=== PATIENT | female | born 1990 | race African-American/Black ===

== ENCOUNTER 2020-04-18 14:35 | Emergency (ER) | payer OTHER ==
[2020-04-18 15:08] LABS: #Basophils 0.1 thou/uL (0.0-0.2); #Eosinphils 0.2 thou/uL (0.0-0.7); #Lymphocytes 2.2 thou/uL (1.20-3.40); #Monocytes 0.5 thou/uL (0.11-0.59); %Basophils 0.8 % (0.0-1.0); %Eosinophils 1.9 % (0.0-10.0); %Lymphocytes 28.1 % (21.0-51.0); %Monocytes 5.8 % (0.0-10.0); %Neutrophils 63.3 % (42.0-75.0); Hemoglobin 13.4 g/dL (12.0-16.0); Mean Corpuscular HGB CONC 32.6 g/dL (32.0-36.0); Mean Corpuscular Hemoglobin 28.3 pg (27.0-31.0); Mean Corpuscular Volume 86.8 fL (78.0-98.0); Mean Platelet Volume 8.4 fL (7.4-10.4); Platelet Count 279 thou/uL (130-400); RBC Distribution Width 11.7 % (11.5-14.5); Red Blood Cell (RBC) Count 4.74 mill/uL (4.20-5.40); White Blood Cell (WBC) Count 7.9 thou/uL (4.8-10.8)
[2020-04-18 15:11] LABS: Bilirubin Negative (Negative); Blood, Urine 3+ (Negative); Clarity Clear (Clear); Glucose, Urine (Dipstick) Normal (Negative); Ketone, Urine Trace mg/dL (Negative); Leukocyte 250 Leu/uL (Negative); Mucous/LPF Rare LPF (<2+); Nitrite Negative (Negative); Protein, Urine (Dipstick) 30 mg/dL (Neg-Trace); RBC/HPF Greater than 50 HPF (0-3); Specific Gravity, Urine 1.035 (1.002-1.036); Urobilinogen 3 mg/dL (Less than 2)
[2020-04-18 15:13] LABS: Bacteria/HPF 1+ HPF (None Seen)
--- NOTE | 2020-04-18 16:30 | ULT ---
Exam: Transabdominal and endovaginal pelvic ultrasound HISTORY:Spotting. patient. COMPARISON: None TECHNIQUE: Transabdominal and endovaginal imaging of the pelvis is performed. Ovaries are interrogate d with grayscale, color flow, Doppler imaging and spectral wave form analysis FINDINGS: Uterus: No myometrial masses. Uterus measurin.8 x 6.6 x 9.0 cm. Endometrium: Within the endometrium, there is a gestational sac, yolk sac and pole. heart tones: Cannot be assessed at this time Thebes-rump length: 0.36 cm, 6 weeks 0 days Subchorionic hemorrhage: None Free fluid: None Right ovary: Normal echotexture Right ovary measurement: 2.9 x 1.7 x 3.0 cm Left ovary: Normal echotexture. Left ovary measurements: 1.6 x 3.0 x 2.6 cm Ovarian Doppler: There is vascular flow to the left and right ovary. IMPRESSION: 1. Single intrauterine gestation. Gestational age by crown-rump length is 6 weeks 0 days. 2. heart tones are not assessed, possibly due to early gestational age. Follow-up ultrasound an d serial beta-hCGs are recommended.
== END 2020-04-18 17:41 | disposition home or self-care (01) ==
LOC: ERS 14:35
DX: O20.9 Hemorrhage in early pregnancy, unspecified (principal); O23.41 Unspecified infection of urinary tract in pregnancy, first trimester; Z3A.01 Less than 8 weeks gestation of pregnancy
CPT/HCPCS: 36415; 76856; 81003; 81015; 84702; 85025; 86900; 86901